=== PATIENT | female | born 1970 | race African-American/Black ===

== ENCOUNTER 2019-12-25 11:57 | Emergency (ER) | payer OTHER, MEDICAID ==
[~2019-12-25] VITALS: Ht 147.3 cm; Wt 53.6 kg
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
[2019-12-25] MEDS ORDERED: NAPR-514 PO (14:45)
[2019-12-25] MEDS ORDERED: CYCL10TA2 PO (14:45)
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
[2019-12-25 15:01] VITALS: BP 181/94
== END 2019-12-25 15:01 | disposition home or self-care (01) ==
LOC: ER 11:57
DX: G89.11 Acute pain due to trauma (principal); M54.2 Cervicalgia; M54.6 Pain in thoracic spine; I10 Essential (primary) hypertension; K21.9 Gastro-esophageal reflux disease without esophagitis; F17.200 Nicotine dependence, unspecified, uncomplicated; Z90.89 Acquired absence of other organs; Z88.0 Allergy status to penicillin; Z98.890 Other specified postprocedural states; V49.9XXA Car occupant (driver) (passenger) injured in unspecified traffic accident, initial encounter; Y93.89 Activity, other specified; Y92.413 State road as the place of occurrence of the external cause; Y99.8 Other external cause status
CPT/HCPCS: 72125; 72128; 72131; 99285